=== PATIENT | female | born 1995 | race Caucasian/White ===

== ENCOUNTER 2020-05-11 10:46 | Emergency (ER) | payer BC, SELFPAY ==
--- NOTE | ~2020-05-11 | XR_ITS ---
EXAMINATION: X-RAY ANKLE, LEFT X-RAY FOOT, LEFT CLINICAL INFORMATION: Pain and swelling status post injury COMPARISON: None TECHNIQUE: AP, oblique, and lateral views of the left ankle and foot FINDINGS: There is normal alignment of the left ankle and foot. No acute fracture or dislocation. Ankle mortise and remainder of the joint spaces are preserved. No joint effusion. Overlying soft tissues are intact. XR/XR foot LT min 3V IMPRESSION: No acute bony abnormality of the left ankle and left foot.
--- NOTE | ~2020-05-11 | XR_ITS ---
EXAMINATION: X-RAY ANKLE, LEFT X-RAY FOOT, LEFT CLINICAL INFORMATION: Pain and swelling status post injury COMPARISON: None TECHNIQUE: AP, oblique, and lateral views of the left ankle and foot FINDINGS: There is normal alignment of the left ankle and foot. No acute fracture or dislocation. Ankle mortise and remainder of the joint spaces are preserved. No joint effusion. Overlying soft tissues are intact. XR/XR ankle LT min 3V IMPRESSION: No acute bony abnormality of the left ankle and left foot.
[2020-05-11 11:17] VITALS: BP 126/67; PULSE 73; RESP 16; TEMP 36.6; O2SAT 98; BMI 27.3
--- NOTE | 2020-05-11 11:29 | PC.NURSE ---
cold pack applied
--- NOTE | 2020-05-11 12:06 | ED.LOWEXIN ---
HPI - Extremity Injury (Lower) General Chief Complaint: Extremity Injury, Lower Stated Complaint: knee injury Time Seen by Provider: 05/11/20 11:20 Source: patient Mode of arrival: wheelchair Limitations: no limitations History of Present Illness HPI Narrative: 24 y/o female presenting with left foot and ankle pain after she tripped and missed a step while walking down some stairs last night. She states her great toe got caught on the step and she twisted her ankle. She is able to put weight on her toes but not the entire foot. She noticed swelling right away and some mild bruising. MD complaint: ankle injury and foot injury Onset (ago): day(s) (1) Injury: Left: ankle and foot Type of Injury: inversion and hyperextension Place: home Severity: moderate Relieving factors: NSAID, cold therapy, immobilization and rest Exacerbating factors: weight bearing, movement and palpation Context: fall and walking Associated symptoms: swelling and able to partially bear weight Other symptoms: none Treatments prior to arrival: cold therapy Related Data Allergies Allergy/AdvReac Type Severity Reaction Status Date / Time No Known Allergies Allergy Verified 05/11/20 11:17 Review of Systems Review of Systems: Constitutional: No Fever, No Chills Musculoskeletal: + joint pain, No Myalgias Skin: No Skin Lesions, No rash Neuro: No Weakness, No Numbness, No Dizziness, No Headache Heme/Lymph: + Bruising, No Lymphadenopathy PMFSH Past Medical History Medical History (Updated 05/11/20 @ 12:31 by CHIVO Thapa) Asthma Social History Social History Smoked in Last 30 Days: No Use of substances other than those prescribed or required for medical reasons: No Advance Directives: No Advance Directives Information Provided: No Advance Directives on File: No Physical Exam Vital Signs: Vital Signs: Last Vital Signs Temp 97.9 F 05/11/20 11:17 Pulse 73 05/11/20 11:17 Resp 16 05/11/20 11:17 BP 126/67 05/11/20 11:17 Pulse Ox 98 05/11/20 11:17 Body Mass Index 27.3 Appearance: Alert. Oriented X3. No acute distress. HEENT: normal inspection CVS: Normal heart rate and rhythm. Pulses normal. Respiratory: No respiratory distress. Skin: Skin warm and dry. Normal skin color. Normal skin turgor. No rashes. Extremities: left anterior foot swelling over 4th & 5th tarsals, mild ecchymosis, mild lateral malleolus tenderness without swelling, full ROM of the ankle, NV intact distallys Neuro: Oriented X 3. No motor deficit. No sensory deficit. Course Course Course Narrative: 24 y/o female presenting with left foot/ankle pain after injury on stairs yesterday. XR pending. Reevaluation(s) Reevaluation #1: XR negative. Pain and swelling likely due to acute sprain/strain. Will place in SOFIA wrap, provide crutches and encourage ice and elevation. Stable for d/c. Discharge Plan Discharge Clinical Impression: Ankle sprain and strain Patient Disposition: Home, Self-Care Instructions: Ankle Sprain (ED) Additional Instructions: Your x-rays today did not show any acute fractures. Wear the SOFIA wrap as needed for comfort and support. It will help with swelling. Rest, elevate and use ice several times per day. You may bear weight as tolerated. Take ibuprofen and/or tylenol as needed for pain. Follow up with your doctor as needed. Interventions: ED Discharge Assessment Last Done: 05/11/20 12:45 Discharge Date/Time: 05/11/20 12:46
[2020-05-11] MEDS: Ibuprofen 600 MG TABLET PO (12:09)
== END 2020-05-11 12:46 | disposition home or self-care (01) ==
PROVIDERS: Emergency Provider Emergency Medicine; PCP Physician Assistant
DX: S93.402A Sprain of unspecified ligament of left ankle, initial encounter (principal); S96.912A Strain of unspecified muscle and tendon at ankle and foot level, left foot, initial encounter; W10.8XXA Fall (on) (from) other stairs and steps, initial encounter; Y93.89 Activity, other specified; Y92.018 Other place in single-family (private) house as the place of occurrence of the external cause; Y99.9 Unspecified external cause status
CPT/HCPCS: 73610; 73630; 99283